=== PATIENT | male | born 1935 | race Caucasian/White ===

== ENCOUNTER 2016-11-14 12:33 | Emergency (ER) | payer MEDICARE, BC ==
--- NOTE | 2016-11-14 14:32 | EDM.PDOC ---
ED HPI GENERAL MEDICAL PROBLEM - General Chief Complaint: General Stated Complaint: dizziness Time Seen by Provider: 11/14/16 12:40 Source of Information: Reports: Patient, RN History Limitations: Reports: No Limitations - History of Present Illness INITIAL COMMENTS - FREE TEXT/NARRATIVE: This 81 yr male presents with dizziness that started last night while he was sitting watching TV. States no confusion and no weakness. He is ambulatory and in no acute distress. Pt states he is here from [place] and is here to help his children with a [place]" [place] the [place]. States he was doing some of the prep work today and noticed the dizziness with movement, so came to ER. Onset Date: 11/13/16 Onset Time: 18:00 Improves with: Reports: Rest Worsens with: Reports: Movement Associated Symptoms: Denies: Confusion, Chest Pain, Headaches, Shortness of Breath ED ROS GENERAL - Review of Systems Review Of Systems: See Below Constitutional: Reports: Other (dizziness) HEENT: Reports: No Symptoms Respiratory: Reports: No Symptoms Cardiovascular: Reports: No Symptoms Endocrine: Reports: Other (Diabetic, controlled with Metformin) GI/Abdominal: Reports: No Symptoms : Reports: Frequency Musculoskeletal: Reports: No Symptoms Skin: Reports: No Symptoms Neurological: Reports: Dizziness. Denies: Headache, Numbness, Tingling, Change in Speech Psychiatric: Reports: No Symptoms ED EXAM, DIZZINESS - Physical Exam Exam: See Below Exam Limited By: No Limitations General Appearance: Alert, WD/WN, No Apparent Distress Nystagmus: No: worsens with head to L, worsens with head to R, reproducible Ears: Normal External Exam Nose: Normal Inspection Throat/Mouth: Normal Lips, Normal Voice, No Airway Compromise Head Exam: Atraumatic Vertigo: No: worsens with head to L, worsens with head to R, reproducible Neck: Normal Inspection, Supple, Non-Tender Respiratory/Chest: No Respiratory Distress, Lungs Clear Cardiovascular: Normal Peripheral Pulses, Regular Rate, Rhythm GI/Abdominal: Soft, Non-Tender Neurological: Alert, Normal Mood/Affect, Normal Gait, Oriented x 3 Extremities: Normal Inspection, No Pedal Edema Skin Exam: Warm, Dry, Normal Color Course - Vital Signs Text/Narrative:: No dizziness with change of position from sitting to standing or sitting to lying down. Ambualted to bathroom X1 and to ER doorway and reports slight dizziness, but nothing like it was. Pt has been alert, calm, and no distress. BP checked sitting, standing and lying and no dizziness with this. Lab results reviewed and discussed with pt. Recommend follow-up with primary care provider for further work-up. Increase fluid intake, states he doesn't drink much for water. Recommend changing position slowly and rest the rest of the day. Last Recorded V/S: Last Vital Signs Temp 98.1 F 11/14/16 15:29 Pulse 66 11/14/16 15:29 Resp 12 11/14/16 15:29 BP 126/69 11/14/16 15:29 Pulse Ox 98 11/14/16 15:29 - Orders/Labs/Meds Labs: Laboratory Tests 11/14/16 11/14/16 11/14/16 Range/Units 11:47 12:58 13:15 WBC 11.4 H (4.0-11.0) K/uL RBC 4.30 L (4.50-6.50) M/uL Hgb 13.3 (13.0-18.0) g/dL Hct 39.9 L (40.0-54.0) % MCV 93 (76-96) fL MCH 30.9 (27.0-32.0) pg MCHC 33.3 (31.0-35.0) g/dL RDW 14.6 (11.0-16.0) % Plt Count 326 (150-400) K/uL MPV 10.2 H (6.0-10.0) fL Neut % (Auto) 71.5 H (45.0-70.0) % Lymph % (Auto) 20.0 (20.0-40.0) % [place] % (Auto) 6.4 (3.0-10.0) % Eos % (Auto) 1.7 (1.0-5.0) % Baso % (Auto) 0.4 (0.0-0.5) % Neut # (Auto) 8.14 H (2.00-7.50) K/uL Lymph # (Auto) 2.27 (1.50-4.00) K/uL Scre[place] # (Auto) 0.73 (0.20-0.80) K/uL Eos # (Auto) 0.19 (0.04-0.40) K/uL Baso # (Auto) 0.04 (0.02-0.10) K/uL Sodium (136-145) mmol/L Potassium (3.5-5.1) mmol/L Chloride (98-107) mmol/L Carbon Dioxide (21.0-32.0) mmol/L Anion Gap (5.0-15.0) mmol/L BUN (8-26) mg/dL Creatinine (0.70-1.30) mg/dL Est Cr Clr Drug Dosing Estimated GFR (MDRD) (>60) MLS/MIN BUN/Creatinine Ratio (6-25) Glucose (74-100) mg/dL POC Glucose 244 H (74-110) mg/dL Calcium (8.5-10.1) mg/dL Urine Color Yellow Urine Appearance Clear (CLEAR) Urine pH 5.0 (5.0-8.0) Ur Specific Jewell >= 1.030 (1.003-1.030) Urine Protein 30 H (NEGATIVE) mg/dL Urine Glucose (UA) Negative (NEGATIVE) mg/dL Urine Ketones Negative (NEGATIVE) mg/dL Urine Occult Blood Negative (NEGATIVE) Urine Nitrite Negative (NEGATIVE) Urine Bilirubin Negative (NEGATIVE) Urine Urobilinogen 0.2 (0.2-1.0) E.U./dL Ur Leukocyte Esterase Trace H (NEGATIVE) Urine RBC Not seen /HPF Urine WBC 0-5 H /HPF Ur Squamous Epith Cells Occasional /HPF Calcium Oxalate Crystal Few /HPF Urine Bacteria Not seen /HPF /18/17 Range/Units 13:15 WBC (4.0-11.0) K/uL RBC (4.50-6.50) M/uL Hgb (13.0-18.0) g/dL Hct (40.0-54.0) % MCV (76-96) fL MCH (27.0-32.0) pg MCHC (31.0-35.0) g/dL RDW (11.0-16.0) % Plt Count (150-400) K/uL MPV (6.0-10.0) fL Neut % (Auto) (45.0-70.0) % Lymph % (Auto) (20.0-40.0) % [place] % (Auto) (3.0-10.0) % Eos % (Auto) (1.0-5.0) % Baso % (Auto) (0.0-0.5) % Neut # (Auto) (2.00-7.50) K/uL Lymph # (Auto) (1.50-4.00) K/uL [place] # (Auto) (0.20-0.80) K/uL Eos # (Auto) (0.04-0.40) K/uL Baso # (Auto) (0.02-0.10) K/uL Sodium 140 (136-145) mmol/L Potassium 4.3 (3.5-5.1) mmol/L Chloride 102 (98-107) mmol/L Carbon Dioxide 28.2 (21.0-32.0) mmol/L Anion Gap 14.1 (5.0-15.0) mmol/L BUN 23 (8-26) mg/dL Creatinine 1.54 H (0.70-1.30) mg/dL Est Cr Clr Drug Dosing TNP Estimated GFR (MDRD) 43 L (>60) MLS/MIN BUN/Creatinine Ratio 14.9 (6-25) Glucose 243 H (74-100) mg/dL POC Glucose (74-110) mg/dL Calcium 9.3 (8.5-10.1) mg/dL Urine Color Urine Appearance (CLEAR) Urine pH (5.0-8.0) Ur Specific Jewell (1.003-1.030) Urine Protein (NEGATIVE) mg/dL Urine Glucose (UA) (NEGATIVE) mg/dL Urine Ketones (NEGATIVE) mg/dL Urine Occult Blood (NEGATIVE) Urine Nitrite (NEGATIVE) Urine Bilirubin (NEGATIVE) Urine Urobilinogen (0.2-1.0) E.U./dL Ur Leukocyte Esterase (NEGATIVE) Urine RBC /HPF Urine WBC /HPF Ur Squamous Epith Cells /HPF Calcium Oxalate Crystal /HPF Urine Bacteria /HPF Departure - Departure Time of Disposition: 13:55 Disposition: Home, Self-Care 01 Condition: Good Clinical Impression: Dizziness - Discharge Information Instructions: Dehydration, Adult, [id number], Dizziness, [id number] Referrals: PCP,None [Primary Care Provider] - Forms: ED Department Discharge Additional Instructions: Follow up with primary care provider if needed for dizziness
== END 2016-11-14 14:10 | disposition home or self-care (01) ==
LOC: LB.ED 12:33
DX: R42 Dizziness and giddiness (principal)
CPT/HCPCS: 36415; 80048; 81001; 82962; 85025; 99282; 99284